=== PATIENT | female | born 1990 | race American Indian/Alaskan Native ===

== ENCOUNTER 2018-06-25 08:17 | Emergency (ER) | payer MEDICAID ==
[2018-06-25 08:25] VITALS: BP 143/86
[2018-06-25 09:01] LABS: Bilirubin,Urine NEG (Negative); Blood,Urine NEG (Negative); Color,Urine Yellow (Yellow); Mucus,Urine 1+ /HPF; Protein,Urine <15 mg/dL mg/dL (Negative)
[2018-06-25 09:06] LABS: HCG Qualitative,Urine Negative (Negative)
--- NOTE | 2018-06-25 10:22 | Emergency Department Report ---
ED Female HPI - General Chief complaint: Urogenital-Female Stated complaint: VAGINAL IRRITATION Time Seen by Provider: 06/25/18 10:21 Source: patient Mode of arrival: Ambulatory Limitations: No Limitations - History of Present Illness Initial comments: This is 27-year-old female here complaining of vaginal irritation and swelling 2 days. Patient denies having vaginal discharge or bleeding. When asked, she is not concerned for STDs. Denies any nausea vomiting or diarrhea. Denies any urinary burning or urgency but urinary frequency. Denies any blood in her urine. Pain to vaginal areas for 10 and feels sore. Worse with movement and better with rest. MD Complaint: other (vaginal pain and swelling) Onset/Timin -: days(s) Location: labia Radiation: non-radiating Severity: mild Severity scale (0 -10): 4 Quality: other (sore) Consistency: intermittent Improves with: none Worsens with: movement Are you Now?: No Last Menstrual Period: 07/10/18 EDC: 04/16/19 Associated Symptoms: other (vaginal pain and urinary frequency). denies: vaginal discharge, vaginal bleeding, abdominal pain, nausea/vomiting, fever/ chills, headaches, loss of appetite, hematuria, rash, seizure, shortness of breath, syncope, weakness - Related Data Sexually active: Yes Previous Rx's Medication Instructions Recorded Last Taken Type ALBUTEROL Inhaler (OR & NICU) 2 puff IH Q6H PRN #1 inhalation 06/20/18 Unknown Rx [ProAir HFA Inhaler] Amoxicillin/K Clav Tab [Augmentin 1 tab PO Q12HR #20 tab 06/20/18 Unknown Rx 875MG TAB] Ibuprofen [Motrin] 800 mg PO Q8HR PRN #15 tablet 06/20/18 Unknown Rx guaiFENesin/DEXTROMETHORPHAN 10 ml PO Q6H PRN #300 liquid 06/20/18 Unknown Rx [Robitussin Cough-Chest Dm Liq] Fluconazole [Diflucan TAB] 200 mg PO QDAY 2 Days #2 tablet 06/25/18 Unknown Rx Ibuprofen [Motrin 600 MG tab] 600 mg PO Q8H PRN #12 tablet 06/25/18 Unknown Rx Miconazole [Monistat] 100 mg VG QHS 7 Days #7 supp.vag 06/25/18 Unknown Rx Sulfamethoxazole/Trimethoprim 1 each PO BID 3 Days #6 tablet 06/25/18 Unknown Rx [Bactrim DS TAB] Allergies Allergy/AdvReac Type Severity Reaction Status Date / Time No Known Allergies Allergy Unverified 06/20/18 15:19 ED Review of Systems ROS: Stated complaint: VAGINAL IRRITATION Other details as noted in HPI Constitutional: denies: chills, fever ENT: denies: ear pain, throat pain Respiratory: denies: cough, shortness of breath, SOB with exertion, SOB at rest , stridor, wheezing Cardiovascular: denies: chest pain, palpitations, edema, syncope Gastrointestinal: denies: abdominal pain, nausea, vomiting, diarrhea Genitourinary: frequency, other (vaginal pain externally). denies: urgency, dysuria, hematuria, discharge, abnormal menses, dyspareunia Musculoskeletal: denies: back pain, joint swelling, arthralgia Skin: denies: rash, lesions Hematological/Lymphatic: easy bruising ED Past Medical Hx - Past Medical History Previous Medical History?: Yes Additional medical history: bronchitis - Surgical History Past Surgical History?: Yes Additional Surgical History: right ankle surgery - Family History Family history: hypertension - Social History Smoking Status: Current Every Day Smoker Substance Use Type: None - Medications Home Medications: Home Medications Medication Instructions Recorded Confirmed Last Taken Type ALBUTEROL Inhaler (OR & NICU) 2 puff IH Q6H PRN #1 inhalation 06/20/18 Unknown Rx [ProAir HFA Inhaler] Amoxicillin/K Clav Tab [Augmentin 1 tab PO Q12HR #20 tab 06/20/18 Unknown Rx 875MG TAB] Ibuprofen [Motrin] 800 mg PO Q8HR PRN #15 tablet 06/20/18 Unknown Rx guaiFENesin/DEXTROMETHORPHAN 10 ml PO Q6H PRN #300 liquid 06/20/18 Unknown Rx [Robitussin Cough-Chest Dm Liq] Fluconazole [Diflucan TAB] 200 mg PO QDAY 2 Days #2 tablet 06/25/18 Unknown Rx Ibuprofen [Motrin 600 MG tab] 600 mg PO Q8H PRN #12 tablet 06/25/18 Unknown Rx Miconazole [Monistat] 100 mg VG QHS 7 Days #7 supp.vag 06/25/18 Unknown Rx Sulfamethoxazole/Trimethoprim 1 each PO BID 3 Days #6 tablet 09/11/18 Unknown Rx [Bactrim DS TAB] ED Physical Exam - General Limitations: No Limitations General appearance: alert, in no apparent distress - Head Head exam: Present: atraumatic, normocephalic, normal inspection - Eye Eye exam: Present: normal appearance, PERRL, EOMI Pupils: Present: normal accommodation - ENT ENT exam: Present: normal exam, normal orophraynx, mucous membranes moist - Neck Neck exam: Present: normal inspection, full ROM. Absent: tenderness, lymphadenopathy - Respiratory Respiratory exam: Present: normal lung sounds bilaterally. Absent: respiratory distress, chest wall tenderness - Cardiovascular Cardiovascular Exam: Present: regular rate, normal rhythm, normal heart sounds. Absent: systolic murmur, diastolic murmur - GI/Abdominal GI/Abdominal exam: Present: soft, normal bowel sounds. Absent: distended, tenderness, guarding, rebound, rigid - External exam: Present: swelling, other (tenderness or palpate). Absent: erythema, lesions, lacerations, ecchymosis, bleeding Speculum exam: Present: cervical discharge. Absent: erythema, vaginal discharge , vaginal bleeding, foreign body, tissue, laceration Bi-manual exam: Present: normal bi-manual exam - Extremities Exam Extremities exam: Present: normal inspection, normal capillary refill, other. Absent: full ROM, tenderness, pedal edema, calf tenderness - Back Exam Back exam: Present: normal inspection, full ROM, other. Absent: tenderness, CVA tenderness (R), CVA tenderness (L), muscle spasm, paraspinal tenderness, vertebral tenderness, rash noted - Neurological Exam Neurological exam: Present: alert, oriented X3, normal gait - Psychiatric Psychiatric exam: Present: normal affect, normal mood - Skin Skin exam: Present: warm, dry, intact, normal color. Absent: rash ED Course Vital Signs 06/25/18 08:22 Temperature 97.9 F Pulse Rate 82 Respiratory 18 Rate Blood Pressure 143/86 O2 Sat by Pulse 99 Oximetry - Reevaluation(s) Reevaluation #1: 06/25/18 11:30 Patient stable throughout ED course ED Medical Decision Making - Medical Decision Making This is a 27-year-old female who reports that she is having pain external vaginal area without any trauma. She is of concern for STD. Laboratory: Urinalysis positive for leukocyte esterase and 1+ mucus, culture sent. Wet prep negative for Trichomonas and no clue cells positive yeast. test negative. Gonorrhea and chlamydia pending. Assessment/plan 1: Vulvovaginitis-positive blood examination we will discharge home on Diflucan and Motrin 2-acute cystitis without hematuria-urinary frequency with moderate amount of leukocyte Estrace we will treat with Bactrim 3 days and culture sent 3: Vaginal yeast-Monistat No. 7. Wet prep yeast. I discussed the patient her diagnosis, urinalysis, test and vaginal swab results. Patient does not want to be treated for gonorrhea and chlamydia and she wants to wait for test results to come back to she said she has not had sex in 2 weeks and that she does not think she has a STD. I discussed the patient that she needs to follow up with [facility] and primary care physician and she says she just moved to the area and she would like to be referred to [facility] and primary care for her to [facility] for both [facility] and primary care. Discharged home with prescription for Diflucan , Motrin, and Bactrim DS and Monistat. She discharged home in stable condition, photosensitive she is afebrile and she is in no acute distress. Critical care attestation.: If time is entered above; I have spent that time in minutes in the direct care of this critically ill patient, excluding procedure time. ED Disposition Clinical Impression: Yeast infection, Urinary frequency, Vulvovaginal candidiasis UTI (urinary tract infection) Qualifiers: Urinary tract infection type: acute cystitis Hematuria presence: without hematuria Qualified Code(s): N30.00 - Acute cystitis without hematuria Disposition: TO HOME OR SELFCARE Is pt being admited?: No Does the pt Need Aspirin: No Condition: Stable Instructions: Vulvovaginal Candidiasis (ED), Vaginitis (ED), Urinary Tract Infection in Women (ED) Additional Instructions: Please follow up with [facility] in 2-3 days. Call and let them normally like to schedule appointment for [facility] and for primary care doctor Take medication as prescribed No sexual activity for the next 2 weeks You Can return to medical records department to get your gonorrhea and chlamydia results in 3-5 days Increasing fluid intake Practice safe sex Prescriptions: Miconazole [Monistat] 100 mg VG QHS 7 Days #7 supp.vag Fluconazole [Diflucan TAB] 200 mg PO QDAY 2 Days #2 tablet Ibuprofen [Motrin 600 MG tab] 600 mg PO Q8H PRN #12 tablet PRN Reason: Pain Sulfamethoxazole/Trimethoprim [Bactrim DS TAB] 1 each PO BID 3 Days #6 tablet Referrals: [facility] [Outside] - 2-3 Days (For primary care and [facility]) CHRISTINA ADEN MD [Staff Physician] - 2-3 Days JOSSY HENNING MD [Staff Physician] - 2-3 Days Forms: Work/School Release Form(ED)
== END 2018-06-25 11:53 | disposition home or self-care (01) ==
LOC: ED 08:17
DX: N30.00 Acute cystitis without hematuria (principal); B37.3 Candidiasis of vulva and vagina; F17.200 Nicotine dependence, unspecified, uncomplicated
CPT/HCPCS: 81001; 81025; 87086; 87210; 87591